=== PATIENT | female | born 1980 | race Caucasian/White ===

== ENCOUNTER 2017-01-30 15:51 | Emergency (ER) | payer SELFPAY ==
[2017-01-30 17:21] LABS: HEMOGLOBIN 12.8 gm/dl (12.3-15.3); RED BLOOD COUNT 4.03 M/UL (4.00-5.10)
[2017-01-30 17:39] LABS: BUN/CREATININE RATIO 10 (0-10)
== END 2017-01-30 23:21 | disposition short-term general hospital (02) ==
LOC: ER1 15:51
PROVIDERS: Emergency Medicine
DX: S01.81XA Laceration without foreign body of other part of head, initial encounter (principal); S19.9XXA Unspecified injury of neck, initial encounter; S39.92XA Unspecified injury of lower back, initial encounter; F17.210 Nicotine dependence, cigarettes, uncomplicated; E87.6 Hypokalemia; D25.9 Leiomyoma of uterus, unspecified; Z98.51 Tubal ligation status; V43.52XA Car driver injured in collision with other type car in traffic accident, initial encounter
CPT/HCPCS: 36415; 70450; 71260; 72125; 80053; 84703; 85025; 96374; 96375; 99285; J0690; J2270; J2405; J7030; J7050; Q9962

== ENCOUNTER 2017-02-07 07:15 | Emergency (ER) | payer SELFPAY | END 2017-02-07 09:42 | disposition home or self-care (01) | LOC: ER1 07:15 | DX: M43.6 Torticollis (principal) | CPT/HCPCS: 84703; 99284 ==